=== PATIENT | male | born 1985 | race Caucasian/White ===

== ENCOUNTER 2017-06-09 15:00 | Inpatient (IN) | payer BC ==
[~2017-06-09] VITALS: Ht 180.3 cm; Wt 74.8 kg
--- NOTE | ~2017-06-09 | PA ---
Unit #: [id number] #: [id number] Patient: TYREL PRITCHARD [id number] [place] [address] [id number] I MR#: [id number] NAME: TYREL PRITCHARD ROOM: P207 Age: 31 Sex: M Admission Date: 06/09/2017 : 1985 Date of Assessment: 06/09/2017 Attending Physician: Nico Oviedo M.D. Admitting Physician: Nico Oviedo M.D. Primary Care Physician: Primary Care Physician No PSYCHIATRIC ASSESSMENT DATE OF SERVICE 06/09/2017. IDENTIFYING DATA Mr. Pritchard is a 31-year-old white male, who is a resident of [place], [place], and was brought to the hospital by his . CHIEF COMPLAINT "I've been using kratom, they sell it at all head shops to come off heroin." HISTORY OF PRESENT ILLNESS Mr. Pritchard is a 31-year-old white male with history of substance abuse and dependence, who came to the hospital stating that he has been using opioids and substituting kratom in order to come off heroin and "it is a powder, but you start to build up a tolerance for it and I've been taking it over the past 3 years 60 mg daily, my last use today 15 g. I've history of taking Xanax last week until yesterday 6 mg a day, also taking Klonopin since 06/02/2017 until yesterday 5 mg daily. I've been drinking vodka daily for the past month and last drink yesterday. Prior to vodka, I was drinking 12 beers daily for the last 2 months." He does report depression, anxiety, irritability, restlessness, significant consequences and having history of suicidal ideations in the past, but denies any current suicidal thoughts, intent, or plan. SUBSTANCE ABUSE HISTORY The patient reports history of alcohol, cannabis, cocaine, and opioid abuse, and has been mixing those on regular basis along with benzodiazepine which he has been using quite regularly. PAST PSYCHIATRIC HISTORY The patient reports history of inpatient psychiatric and chemical dependency treatment at [facility] and has done outpatient treatment program as well and review of the medical records indicate that currently he is not active in any treatment program, and has been seeing his outpatient provider who has been giving him Adderall in addition to him using opioids and alcohol and cocaine and benzodiazepine. PAST MEDICAL HISTORY The patient's medical history is significant for hypothyroidism. ALLERGIES No known medication allergies. Unit #: [id number] #: [id number] Patient: TYREL PRITCHARD CURRENT MEDICATIONS Adderall and Synthroid. PERSONAL AND SOCIAL HISTORY A 31-year-old white male, who reports that he is and lives at home with his and has fairly decent social support system. MENTAL STATUS EXAMINATION Young white male who was casually dressed with fair personal hygiene, appears to be in no acute distress or discomfort. He was awake and alert on interaction with intact orientation. His mood was anxious and depressed with a congruent affect. His speech was slow and goal directed. His thought processes were disorganized with some looseness of associations and flight of ideas. He denies any suicidal or homicidal ideations and also denies any auditory or visual hallucinations. His insight and judgment remain significantly impaired. DIAGNOSTIC IMPRESSION Psychiatric: Alcohol dependence, moderate and acute withdrawals; opioid dependence, moderate and acute withdrawals; benzodiazepine dependence, moderate; cocaine abuse, moderate; cannabis abuse, moderate. Medical: Hypothyroidism. Stressors: Moderate psychosocial stressors. TREATMENT PLAN 1. The patient has presented with history of substance abuse and mood disorder, and has been mixing drugs and using them regularly and heavily and will need detox from both alcohol and benzos as well as from opioids and as such, we will start him on both the detox protocol and we will monitor his response to treatment interventions. We will make further adjustments as needed. 2. Supportive therapy was provided to the patient. 3. Safe, structured, and nourishing environment will be provided. ESTIMATED LENGTH OF STAY 5 to 7 days. ABILITY TO HELP SELF Limited. WILLINGNESS TO HELP SELF The patient appears to be willing to help self. STRENGTHS 1. Communicative. 2. Cooperative. PROBLEMS 1. Chronic dysphoric symptoms. 2. Poor social support system. DISCHARGE CRITERIA This will be contingent upon the patient's ability to go through detox without having any significant withdrawal symptoms as well as his ability to stay safe to himself and others, particularly after discharge from the hospital. Unit #: [id number] #: [id number] Patient: TYREL PRITCHARD Dictated by... Nico Oviedo M.D. YAMINI/zara TD: 06/10/2017 23:00 JOB #: [id number] PSYCHIATRIC ASSESSMENT Page 1 of 1 X Nico Oviedo MD PSYCHIATRIC ASSESSMENT
--- NOTE | ~2017-06-09 | DS ---
Unit #: [id number] #: [id number] [facility] [id number] [facility] [address] [place] [address] [id number] MR#: [id number] NAME: TYREL PRITCHARD ROOM: P209 Age: 31 Sex: M Admission Date: 06/09/2017 : 1985 Discharge Date: 06/13/2017 Attending Physician: Nico Oviedo M.D. Primary Care Physician: Primary Care Physician No DISCHARGE SUMMARY IDENTIFYING DATA Mr. Pritchard is a 31-year-old white male, who is a resident of [place], [place], and was brought to the hospital by his . DISCHARGE DIAGNOSES Psychiatric: Alcohol dependence, moderate, in acute withdrawals; opioid dependence, moderate, in acute withdrawals; benzodiazepine dependence, moderate; cocaine abuse, moderate; cannabis abuse, moderate. Medical: Hypothyroidism. Stressors: Moderate psychosocial stressors. HISTORY OF PRESENT ILLNESS Please see initial psychiatric evaluation for details. PAST PSYCHIATRIC HISTORY Please see initial psychiatric evaluation for details. PAST MEDICAL HISTORY Please see initial psychiatric evaluation for details. HOSPITAL COURSE The patient was admitted to the adult psychiatric and chemical dependency unit at [facility] and was oriented to the hospital environment. Routine p.r.n. medications were initiated and started on the detox protocol and was closely monitored. He was taking medications regularly and was tolerating them fairly well and was able to show a decent therapeutic response and was willing to continue treatment on an outpatient basis and as such, it was decided that he will be discharged home and will continue treatment on an outpatient basis. DISCHARGE MEDICATIONS None. DISCHARGE CONDITION Stable. PROGNOSIS Fair. Dictated by... Nico Oviedo M.D. IAA/modl Unit #: [id number] #: [id number] Patient: TYREL PRITCHARD TD: 06/16/2017 00:36 JOB #: [id number] DISCHARGE SUMMARY Page 1 of 1 X Nico Oviedo MD DISCHARGE SUMMARY
--- NOTE | ~2017-06-09 | PN ---
Unit #: [id number] #: [id number] Patient: TYREL MARTÍNEZ [id number] [facility] [address] [place] [address] [id number] I MR#: [id number] NAME: TYREL MARTÍNEZ ROOM: P207 Age: 31 Sex: M Admission Date: 06/09/2017 : 1985 Attending Physician: Nico Oviedo M.D. Admitting Physician: Nico Oviedo M.D. Primary Care Physician: Primary Care Physician Roxanne RIVERA PROGRESS NOTES DATE 06/12/2017 DISCUSSION Mr. Martínez is a 31-year-old white male with substance abuse and mood disorder who was seen and chart was reviewed and case was discussed with the staff. He has been anxious, withdrawn and was rather seclusive to herself though appears to be doing much better and coming out of the detox without any complications. He has been taking the medications and tolerating them fairly well. MENTAL STATUS EXAMINATION Young white male who was casually dressed with fair personal hygiene and appears to be in no acute distress or discomfort. He was awake and alert with intact orientation. His mood was anxious with congruent affect. His speech is slow and goal-directed. He denies any suicidal or homicidal ideation. His insight and judgement remains slightly impaired. TREATMENT PLAN 1. Will continue on his current medications and treatment protocol. Will monitor his response to the medications and make further adjustments as needed. 2. Will continue to follow up. Dictated by... Lupe Thorne/phoebe TD: 06/12/2017 21:20 JOB #: [id number] Unit #: [id number] #: [id number] Patient: TYREL MARTÍNEZ PROGRESS NOTES Page 1 of 1 X Nico Oviedo MD X PROGRESS NOTE
--- NOTE | ~2017-06-09 | HP ---
Unit #: [id number] #: [id number] Patient: CK MARTÍNEZ [id number] [facility] [address] [place] [address] [id number] I MR#: [id number] NAME: CK MARTÍNEZ ROOM: P209 Age: 31 Sex: M Admission Date: 06/09/2017 : 1985 Attending Physician: Nico Oviedo M.D. Admitting Physician: Nico Oviedo M.D. Primary Care Physician: Primary Care Physician No HISTORY AND PHYSICAL HISTORY OF PRESENT ILLNESS Ck is a 31 year old admitted to [address] [place] [address] because of his illicit drug use which includes Kartom, heroin, and benzodiazepines. PAST MEDICAL HISTORY Long history of illicit substance abuse. PAST SURGICAL HISTORY 1. History of alcohol abuse. 2. Hypothyroidism. ALLERGIES No known drug allergies. SOCIAL HISTORY Smokes one pack per day. Drinks alcohol on a daily basis and admits to illicit drug use. FAMILY HISTORY Medically noncontributory. REVIEW OF SYSTEMS CONSTITUTIONAL: No fever or chills. HEENT: Denies any sore throat, ear pain or runny nose. CARDIOVASCULAR: Denies chest pain, irregular heart rhythm or palpitations. CHEST: Denies shortness of breath or cough. No hemoptysis. GASTROINTESTINAL: Denies nausea, vomiting, diarrhea or chronic constipation. ENDOCRINE: Denies history of increased thirst or urination. No recent significant weight loss or gain. GENITOURINARY: Denies dysuria, frequency, or hematuria. SKIN: Denies any rashes. HEMATOLOGIC: Denies history of increased bleeding or bruising. MUSCULOSKELETAL: Denies any hot, swollen joints. No generalized muscle pain. NEUROLOGIC: Denies problems with vision or speech. No frequent, severe headaches. No numbness, tingling or weakness in any extremities. Denies loss of bladder or bowel control. CURRENT MEDICATIONS 1. Synthroid 0.05 mg daily 2. Detox protocol Unit #: [id number] #: [id number] Patient: CK MARTÍNEZ PHYSICAL EXAMINATION GENERAL: Alert, well-nourished, in no apparent distress. VITAL SIGNS: Blood pressure 120/80, heart rate 16, respirations 16, temperature 98.6. WEIGHT: 165. HEIGHT: 5 foot 11 inches. SKIN: Warm and dry without rash or lesion. HEENT: Normocephalic. TMs not viewed. Oral and nasal passages clear. Conjunctivae clear. Pupils equal, round and reactive to light and accommodation. Extraocular movements intact. NECK: Supple without lymphadenopathy or thyromegaly. HEART: Regular rate and rhythm without murmur. LUNGS: Clear. ABDOMEN: Soft, nontender. : Not done. EXTREMITIES: No evidence of cyanosis, clubbing or edema. Moves all extremities without focal deficit. NEUROLOGICAL: Grossly within normal limits. Cranial Nerves: II: Visual mcdaniel are intact. III, IV AND : Extraocular movements are intact. Pupils are equal, round and reactive to light. V: Facial sensation is grossly normal. VII: Facial movements and expression are normal. VIII: Auditory acuity grossly intact. IX, X: Uvula is midline. Phonation is normal. XI: Patient shrugs shoulders and turns head normally. XII: Tongue protrudes in the midline. Sensory and Motor Function: Sensory and motor sensation is grossly normal. Motor: moves all extremities well. Coordination: Gait is normal. Deep Tendon Reflexes: Intact. IMPRESSION Psychiatric admission. RECOMMENDATIONS PSYCHIATRIC: Per psychiatrist. MEDICAL: I see no contraindications to participating in facility's activities. MEDICAL PROGNOSIS Good. MEDICAL CONDITION Stable. Dictated by... Barbra Mason PEnedeliaAEnedelia-Naomy. for Lupe Garcia/garrick TD: 06/29/2017 03:07 JOB #: [id number] Unit #: [id number] #: [id number] Patient: CK MARTÍNEZ HISTORY AND PHYSICAL Page 1 of 1 X Barbra Mason HISTORY AND PHYSICAL
--- NOTE | ~2017-06-09 | PN ---
Unit #: [id number] #: [id number] Patient: TYREL MARTÍNEZ [id number] [facility] [address] [place] [address] [id number] MR#: [id number] NAME: TYREL MARTÍNEZ ROOM: P207 Age: 31 Sex: M Admission Date: 06/09/2017 : 1985 Attending Physician: Nico Oviedo M.D. Admitting Physician: Nico Oviedo M.D. Primary Care Physician: Primary Care Physician Roxanne RUBIO NOTES DATE OF SERVICE 06/11/2017 DISCUSSION Mr. Martínez is a 31-year-old white male who was seen today. Chart was reviewed and case was discussed with the staff. He has been anxious, withdrawn, and rather seclusive to himself. Meanwhile, he has been cooperative with the treatment recommendations and has been taking the medications and tolerating them fairly well with no reported side effects. MENTAL STATUS EXAMINATION Young white male who is casually dressed with fair personal hygiene, appears to be in no acute distress or discomfort. He was awake and alert on interaction with intact orientation. His mood is anxious with congruent affect. His speech is slow and goal-directed. He denies any suicidal or homicidal ideations and also denies any auditory or visual hallucinations. His insight and judgment remain slightly impaired. TREATMENT PLAN 1. We will continue him on his current medications and treatment protocol. We will monitor response to the medications and make further adjustments as needed. 2. We will continue to follow up. Dictated by... Lupe Thorne/yasmin TD: 06/11/2017 15:04 JOB #: [id number] Unit #: [id number] #: [id number] Patient: TYREL MARTÍNEZ NICOLE PROGRESS NOTES Page 1 of 1 X Nico Oviedo MD PROGRESS NOTE
[2017-06-10 13:42] LABS: URINE APPEARANCE CLEAR; URINE BILIRUBIN NEG (NEG); URINE BLOOD NEG (NEG); URINE COLOR YELLOW; URINE GLUCOSE NEG (NEG); URINE KETONE 1+ (NEG); URINE LEUKOCYTE ESTERASE NEG (NEG); URINE NITRATE NEG (NEG); URINE PROTEIN NEG (NEG); URINE SPECIFIC GRAVITY 1.018 (1.003-1.035); URINE UROBILINOGEN 0.2 MG/DL (NEG)
[2017-06-10 14:16] LABS: AMPHETAMINE POS (NEG); BARBITURATES NEG (NEG); BENZODIAZEPINES POS (NEG); COCAINE NEG (NEG); MARIJUANA NEG (NEG); OPIATES NEG (NEG); TRICYCLIC ANTIDEPRESSANTS NEG (NEG); U METHADONE NEG (NEG)
[2017-06-11 18:01] LABS: BASOPHIL% 0.4 % (0-2.5); EOSINOPHIL% 0.1 % (0.0-7.0); LYMPHOCYTE# 0.7 X10e3 (1.0-3.5); LYMPHOCYTE% 13.3 % (17.0-45.0); MEAN CELL VOLUME 95.3 FL (83-96); MEAN CORPUSCULAR HEMOGLOBIN 31.7 PG (28-34); MEAN CORPUSCULAR HGB CONC 33.3 g/dL (30-36); MEAN PLATELET VOLUME 8.8 FL (6.5-11.5); MONOCYTE# 0.5 X10e3 (0-1.0); MONOCYTE% 9.9 % (3.0-12.0); NEUTROPHIL# 4.1 X10e3 (1.5-7.1); NEUTROPHIL% 76.3 % (40-75); PLATELET COUNT 264 X10e3 (140-420); RED BLOOD COUNT 4.41 X10e (3.90-5.60); RED CELL DISTRIBUTION WIDTH 12.9 % (11.0-15.5); WHITE BLOOD COUNT 5.4 X10e3 (4.0-10.5)
[2017-06-11 18:06] LABS: DIFF IND NO
[2017-06-11 18:19] LABS: ALBUMIN SERUM 4.4 g/dL (3.5-5.0); BILIRUBIN,TOTAL 0.7 mg/dL (0.2-2.0); BUN/CREATININE RATIO 7.14; CALCIUM SERUM 9.4 mg/dL (8.4-10.2); CREATININE SERUM 0.7 mg/dL (0.6-1.4); GLOM FILT RATE Estimated 124.9 mL/min (>60); POTASSIUM 4.5 mmol/L (3.5-5.1); PROTEIN TOTAL SERUM 7.1 g/dL (6.0-8.3)
== END 2017-06-13 11:30 | disposition home or self-care (01) | DRG 897 ==
LOC: P2S 17:35
PROVIDERS: Psychiatry & Neurology Psychiatry
PROC: HZ2ZZZZ Detoxification Services for Substance Abuse Treatment (ICD-10-PCS; principal; 2017-06-09)
DX: F10.239 Alcohol dependence with withdrawal, unspecified (principal); F11.23 Opioid dependence with withdrawal; F13.20 Sedative, hypnotic or anxiolytic dependence, uncomplicated; F12.10 Cannabis abuse, uncomplicated; E03.9 Hypothyroidism, unspecified; F14.10 Cocaine abuse, uncomplicated
CPT/HCPCS: 80053; 80307; 81003; 85025; 86592